=== PATIENT | female | born 1990 | race Caucasian/White ===

== ENCOUNTER 2017-07-01 20:31 | Emergency (ER) | payer OTHER, MEDICAID ==
[~2017-07-01] VITALS: Ht 165.1 cm; Wt 97.1 kg
[~2017-07-01 20:31] MED LIST: KEFLEX500 M1 PO; TRINATE TABLET1 TAB; ZANTAC 150MG T150 M1
[2017-07-01 21:35] VITALS: BP 108/61
== END 2017-07-01 21:35 | disposition home or self-care (01) ==
LOC: M.ERS 20:31
DX: O26.893 Other specified pregnancy related conditions, third trimester (principal); O99.333 Smoking (tobacco) complicating pregnancy, third trimester; M54.6 Pain in thoracic spine; Z3A.28 28 weeks gestation of pregnancy